=== PATIENT | male | born 1965 | race African-American/Black ===

== ENCOUNTER 2023-11-17 12:37 | Inpatient (IN) | payer OTHER ==
[2023-11-17 13:36] VITALS: BMI 22.1
[2023-11-17] MEDS ORDERED: POLYETHYLENE GLYCOL (HEALTHYLAX) 3350 17 GM PACKET PO PRN ×2 (15:01→17:06)
[2023-11-17] MEDS ORDERED: guaiFENesin 600 MG TABLET.ER (FP) PO PRN ×2 (15:01→17:06)
[2023-11-17] MEDS ORDERED: BENZOCAINE/MENTHOL (CHLORASEPTIC ) LOZENGE MM PRN ×2 (15:01→17:06)
[2023-11-17] MEDS ORDERED: ONDANSETRON *ODT* 4 MG TABLET SL PRN (15:01)
[2023-11-17] MEDS ORDERED: MAG HYDROX/AL HYDROX/SIMETH 30 ML UNIT-DOSE CUP PO PRN ×2 (15:01→17:06)
[2023-11-17] MEDS ORDERED: BENZONATATE 200 MG CAPSULE PO PRN ×2 (15:01→17:06)
[2023-11-17] MEDS ORDERED: DICYCLOMINE HCL 10 MG CAPSULE PO PRN (15:01)
[2023-11-17] MEDS ORDERED: NALOXONE HCL 0.4 MG/ML VIAL IM PRN ×2 (15:01→17:06)
[2023-11-17] MEDS ORDERED: hydrOXYzine PAMOATE 25 MG CAPSULE (FP) PO PRN ×2 (15:01→17:06)
[2023-11-17] MEDS ORDERED: METHOCARBAMOL 500 MG TABLET PO PRN (15:01)
[2023-11-17] MEDS ORDERED: MAGNESIUM HYDROX 2400MG/30ML ORAL SUSPENSION 30 ML CUP PO PRN ×2 (15:01→17:06)
[2023-11-17] MEDS ORDERED: IBUPROFEN 400 MG TABLET (FP) PO PRN ×2 (15:01→17:06)
[2023-11-17] MEDS ORDERED: BISMUTH SUBSALICYLATE 262 MG/15 ML BTL PO PRN (15:01)
[2023-11-17] MEDS ORDERED: ACETAMINOPHEN 325 MG TABLET (FP) PO PRN ×2 (15:01→17:06)
[2023-11-17] MEDS ORDERED: NALOXONE HCL (KLOXXADO) 8 MG SPRAY NS PRN ×2 (15:01→17:06)
[2023-11-17] MEDS ORDERED: LOPERAMIDE HCL 2 MG CAPSULE PO PRN ×2 (15:01→17:06)
[2023-11-17] MEDS ORDERED: IBUPROFEN 600 MG TABLET (FP) PO PRN (15:01)
[2023-11-17] MEDS: cloNIDine HCL 0.1 MG TABLET PO ONE ×2 (15:24→18:22)
[2023-11-17] MEDS ORDERED: MELATONIN 5 MG TABLETS PO SCH (22:00)
[2023-11-17] MEDS ORDERED: THIAMINE 100 MG TABLET PO SCH (22:00)
[2023-11-17] MEDS: MELATONIN 5 MG TABLETS PO SCH (23:08)
[2023-11-17] MEDS: THIAMINE 100 MG TABLET PO SCH (23:08)
[2023-11-17] MEDS: cloNIDine HCL 0.1 MG TABLET PO PRN (23:08)
[2023-11-18] MEDS ORDERED: ALBUTEROL SO4 HFA INHALER IH PRN (06:36)
[2023-11-18 06:47] VITALS: BP 159/90; PULSE 86; RESP 16; TEMP 98.9
[2023-11-18] MEDS: IBUPROFEN 600 MG TABLET (FP) PO PRN (09:20)
[2023-11-18] MEDS: PRENATAL VITAMINS W/ FOLIC ACID TABLET (FP) PO SCH (09:20)
[2023-11-18] MEDS ORDERED: PRENATAL VITAMINS W/ FOLIC ACID TABLET (FP) PO SCH (10:00)
[2023-11-18 11:43] LABS: HEMATOCRIT 41.9 % (35.4-49); HEMOGLOBIN 13.4 GM/dL (11.7-16.9); MCH 29.1 pg (25.7-33.7); MCHC 32.1 g/dl (32.0-35.9); MEAN CELL VOLUME 90.6 fl (80-96); MEAN PLT VOLUME 7.4 fl (7.5-11.1); PLATELET COUNT 422 10^3/uL (134-434); RBC 4.62 M/mm3 (4.00-5.60); RDW 14.1 % (11.9-15.9); WHITE BLOOD COUNT 5.2 K/mm3 (4.0-10.0)
[2023-11-18 11:44] LABS: PH,URINE 8.5 (5.0-8.0); URINE APPEARANCE TURBID; URINE BILIRUBIN NEGATIVE (NEGATIVE); URINE COLOR YELLOW; URINE GLUCOSE (UA) TRACE (NEGATIVE); URINE KETONE NEGATIVE (NEGATIVE); URINE LEUK ESTERASE NEGATIVE (NEGATIVE); URINE NITRITE NEGATIVE (NEGATIVE); URINE PROTEIN TRACE (NEGATIVE)
[2023-11-18 11:51] LABS: CHLORIDE 108 mmol/L (98-107); POTASSIUM 4.1 mmol/L (3.5-5.1); SODIUM 138 mmol/L (136-145)
[2023-11-18 11:58] LABS: BLOOD UREA NITROGEN 14.3 mg/dL (7-18); CALCIUM 9.7 mg/dL (8.5-10.1)
[2023-11-18 11:59] LABS: ANION GAP 7 mmol/L (4-13); CO2 24 mmol/L (21-32); GLUCOSE,RANDOM 140 mg/dL (74-106)
[2023-11-18 12:00] LABS: ALBUMIN 3.2 g/dl (3.4-5.0)
[2023-11-18 12:01] LABS: CREATININE 0.9 mg/dL (0.55-1.3)
[2023-11-18 12:02] LABS: BILIRUBIN,TOTAL 0.6 mg/dL (0.2-1); SGPT/ALT 38 U/L (13-61)
[2023-11-18 12:03] LABS: ALK PHOS 98 U/L (45-117)
[2023-11-18 12:04] LABS: SGOT/AST 28 U/L (15-37); TOT PROT 6.6 g/dl (6.4-8.2)
== END 2023-11-18 11:11 | disposition home or self-care (01) | DRG 772 ==
LOC: YASAS 12:37 → Y3N 15:12 → Y3NR 16:45
PROVIDERS: ADMIT Allergy & Immunology; ATTEND Psychiatry & Neurology Pain Medicine
PROC: HZ42ZZZ Group Counseling for Substance Abuse Treatment, Cognitive-Behavioral (ICD-10-PCS; principal; 2023-11-17)
DX: F11.20 Opioid dependence, uncomplicated (principal); F14.20 Cocaine dependence, uncomplicated; F17.210 Nicotine dependence, cigarettes, uncomplicated; I10 Essential (primary) hypertension; J45.909 Unspecified asthma, uncomplicated
CPT/HCPCS: 36415; 80053; 80307; 81003; 85027; 86593; 86780; 86803

== ENCOUNTER 2024-01-18 22:28 | Inpatient (IN) | payer OTHER ==
[2024-01-18] MEDS ORDERED: guaiFENesin 600 MG TABLET.ER (FP) PO PRN (23:23)
[2024-01-18] MEDS ORDERED: hydrOXYzine PAMOATE 25 MG CAPSULE (FP) PO PRN (23:23)
[2024-01-18] MEDS ORDERED: POLYETHYLENE GLYCOL (HEALTHYLAX) 3350 17 GM PACKET PO PRN (23:23)
[2024-01-18] MEDS ORDERED: ACETAMINOPHEN 325 MG TABLET (FP) PO PRN (23:23)
[2024-01-18] MEDS ORDERED: ONDANSETRON *ODT* 4 MG TABLET SL PRN (23:23)
[2024-01-18] MEDS ORDERED: BENZONATATE 200 MG CAPSULE PO PRN (23:23)
[2024-01-18] MEDS ORDERED: NALOXONE HCL 0.4 MG/ML VIAL IM PRN (23:23)
[2024-01-18] MEDS ORDERED: NALOXONE (NARCAN) HCL 4 MG/0.1 ML SPRAY NS PRN (23:23)
[2024-01-18] MEDS ORDERED: BENZOCAINE/MENTHOL (CHLORASEPTIC ) LOZENGE MM PRN (23:23)
[2024-01-18] MEDS ORDERED: BISMUTH SUBSALICYLATE 524 MG/30 ML PO PRN (23:23)
[2024-01-18] MEDS ORDERED: IBUPROFEN 400 MG TABLET (FP) PO PRN (23:23)
[2024-01-18] MEDS ORDERED: IBUPROFEN 600 MG TABLET (FP) PO PRN (23:23)
[2024-01-18] MEDS ORDERED: MAGNESIUM HYDROX 2400MG/30ML ORAL SUSPENSION 30 ML CUP PO PRN (23:23)
[2024-01-18] MEDS ORDERED: DICYCLOMINE HCL 10 MG CAPSULE PO PRN (23:23)
[2024-01-18] MEDS ORDERED: LOPERAMIDE HCL 2 MG CAPSULE PO PRN (23:23)
[2024-01-18] MEDS ORDERED: MAG HYDROX/AL HYDROX/SIMETH 30 ML UNIT-DOSE CUP PO PRN (23:23)
[2024-01-18 23:29] VITALS: BMI 21.1
[2024-01-19] MEDS ORDERED: amLODIPine BESYLATE 5 MG TABLET (FP) ONE (09:06)
[2024-01-19] MEDS: PRENATAL VITAMINS W/ FOLIC ACID TABLET (FP) PO SCH (09:11)
[2024-01-19] MEDS: amLODIPine BESYLATE 5 MG TABLET (FP) PO ONE (09:11)
[2024-01-19 21:22] VITALS: RESP 16
[2024-01-19] MEDS: THIAMINE 100 MG TABLET PO SCH (22:52)
[2024-01-19] MEDS: MELATONIN 5 MG TABLETS PO SCH (22:52)
[2024-01-20 09:12] VITALS: BP 135/73; PULSE 92; TEMP 98.1
[2024-01-20] MEDS: NALOXONE (NARCAN) HCL 4 MG/0.1 ML SPRAY NS ONE (10:06)
== END 2024-01-20 09:55 | disposition home or self-care (01) | DRG 773 ==
LOC: YASAS 22:28 → Y6N 01-19 12:43
PROVIDERS: ADMIT Allergy & Immunology; ATTEND Surgery
PROC: HZ2ZZZZ Detoxification Services for Substance Abuse Treatment (ICD-10-PCS; principal; 2024-01-19)
DX: F11.23 Opioid dependence with withdrawal (principal); F14.20 Cocaine dependence, uncomplicated; F12.20 Cannabis dependence, uncomplicated; F17.210 Nicotine dependence, cigarettes, uncomplicated; F19.282 Other psychoactive substance dependence with psychoactive substance-induced sleep disorder; I10 Essential (primary) hypertension; J45.909 Unspecified asthma, uncomplicated; Z56.0 Unemployment, unspecified; Z59.00 Homelessness unspecified
CPT/HCPCS: 80305; 93005; 93010